=== PATIENT | male | born 1985 | race African-American/Black ===

== ENCOUNTER 2020-10-30 10:45 | Emergency (ER) | payer MEDICAID ==
[~2020-10-30] VITALS: Ht 165.1 cm; Wt 59.0 kg
[2020-10-30 10:55] VITALS: BP 98/69
[2020-10-30] MEDS ORDERED: KETOROLAC 60MG/2ML VIAL IM STA (11:15)
== END 2020-10-30 11:40 | disposition home or self-care (01) ==
LOC: ER 10:50
DX: M25.512 Pain in left shoulder (principal)
CPT/HCPCS: 99282

== ENCOUNTER 2021-10-26 22:45 | Emergency (ER) | payer MEDICAID ==
[~2021-10-26] VITALS: Ht 167.6 cm; Wt 59.0 kg
[2021-10-26 23:07] VITALS: BP 105/74
[2021-10-27] MEDS ORDERED: ONDANSETRON 4MG ODT PO ONE
== END 2021-10-27 01:21 | disposition home or self-care (01) ==
LOC: ER 22:45
DX: M79.18 Myalgia, other site (principal); R05.9 Cough, unspecified; R11.0 Nausea; F12.10 Cannabis abuse, uncomplicated; Z20.822 Contact with and (suspected) exposure to COVID-19
CPT/HCPCS: 87426; 99283; Q0162

== ENCOUNTER 2023-10-13 00:21 | Emergency (ER) | payer MEDICAID, OTHER ==
[~2023-10-13] VITALS: Ht 167.6 cm; Wt 63.0 kg
[2023-10-13 00:37] VITALS: O2SAT 99
[2023-10-13] MEDS ORDERED: IBUPROFEN 600MG TABLET PO ONE (03:00)
[2023-10-13] MEDS ORDERED: GUAIFENESIN 600MG ER TABLET PO ONE (03:00)
[2023-10-13 03:35] LABS: BASOPHILS % 0.6 % (0.0-2.0); EOSINOPHILS % 1.6 % (0.0-5.0); HEMATOCRIT. 42.3 % (42.0-52.0); HEMOGLOBIN. 13.7 g/dL (14.0-18.0); LYMPHOCYTES % 21.5 % (20.0-50.0); MEAN CORPUSCULAR HEMOGLOBIN 27.3 pg (28.0-32.0); MEAN CORPUSCULAR HGB CONC 32.4 g/dL (31.0-37.0); MEAN CORPUSCULAR VOLUME 84.2 fL (80.0-94.0); MEAN PLATELET VOLUME 7.2 fl (7.4-10.4); MONOCYTES % 6.8 % (2.0-8.0); NEUTROPHILS % 69.5 % (40.0-76.0); PLATELET 363 x1000/uL (130-400); RED BLOOD CELL COUNT 5.02 mill/uL (4.7-6.1); RED CELL DISTRIBUTION WIDTH 13.7 % (11.6-14.6); WHITE BLOOD COUNT 7.7 x1000/uL (4.5-11.0)
[2023-10-13 03:53] LABS: ALANINE AMINOTRANSFERASE 52 IU/L (10-49); ALBUMIN 4.7 g/dL (3.2-4.8); ASPARTATE AMINOTRANSFERASE 45 IU/L (<34); BILIRUBIN TOTAL 0.5 mg/dL (0.1-1.0); CALCIUM 10.4 mg/dL (8.7-10.4); CARBON DIOXIDE 31 mEq/L (21-32); CHLORIDE 100 mEq/L (98-107); CREATININE 0.9 mg/dL (0.6-1.3); ETHANOL BLOOD < 10 mg/dL (<10); GLUCOSE 107 mg/dL (70-105); POTASSIUM 3.8 mEq/L (3.5-5.1); PROTEIN TOTAL 7.3 g/dL (6.0-8.3); SODIUM 138 mEq/L (136-145); UREA NITROGEN BLOOD 13 mg/dL (9-23)
[2023-10-13] MEDS ORDERED: ALBU6.7H15 INH (04:06)
[2023-10-13] MEDS ORDERED: GUAI600T26 MT (04:06)
[2023-10-13] MEDS ORDERED: ACET-2708 MT (04:06)
[2023-10-13 04:20] VITALS: BP 129/71; PULSE 84; RESP 20; TEMP 97.9
== END 2023-10-13 04:20 | disposition home or self-care (01) ==
LOC: ER 00:21
DX: B34.9 Viral infection, unspecified (principal); F12.10 Cannabis abuse, uncomplicated; Z00.00 Encounter for general adult medical examination without abnormal findings
CPT/HCPCS: 36415; 71045; 80053; 80320; 85025; 99284; G0480

== ENCOUNTER 2024-12-15 00:06 | Emergency (ER) | payer MEDICAID ==
[~2024-12-15] VITALS: Ht 170.2 cm; Wt 70.0 kg
[~2024-12-15 00:06] MED LIST: ACET-2708 MT; ALBU6.7H15 INH; GUAI600T26 MT
[2024-12-15 00:09] VITALS: BP 112/78; PULSE 84; RESP 18; TEMP 36.9; O2SAT 98
== END 2024-12-15 01:15 | disposition left against medical advice (07) ==
LOC: ER 00:06
DX: R51.9 Headache, unspecified (principal); Z53.21 Procedure and treatment not carried out due to patient leaving prior to being seen by health care provider
CPT/HCPCS: 99283